=== PATIENT | female | born 1970 | race Caucasian/White ===

== ENCOUNTER → 2018-04-04 | Outpatient (CLI) | payer OTHER | LOC: M RAD 17:50 | DX: D25.9 Leiomyoma of uterus, unspecified (principal); N85.4 Malposition of uterus | CPT/HCPCS: 76856 ==

== ENCOUNTER → 2018-06-30 | Outpatient (REF) | payer OTHER ==
[2018-07-02 14:10] LABS: HPV HYBRID CAPTURE II Positive (Negative)
== END ==
LOC: M LAB REF 18:31
DX: Z12.4 Encounter for screening for malignant neoplasm of cervix (principal)

== ENCOUNTER 2018-08-29 06:00 | Day surgery (SDC) | payer OTHER ==
[~2018-08-29 06:00] MED LIST: LR 1,000 ML IV
[2018-08-29 06:37] LABS: HEMATOCRIT 37.2 % (36.0-47.0); HEMOGLOBIN 12.1 g/dl (12.0-15.5); MEAN CORPUSCULAR HEMOGLOBIN 25.3 pg (27.0-33.0); MEAN CORPUSCULAR HGB CONC 32.5 g/dl (32.0-36.5); MEAN CORPUSCULAR VOLUME 77.8 fl (80.0-96.0); PLATELET COUNT, AUTOMATED 371 10^3/uL (150-450); RED BLOOD COUNT 4.78 10^6/uL (4.00-5.40); RED CELL DISTRIBUTION WIDTH 17.7 % (11.5-14.5); WHITE BLOOD COUNT 10.7 10^3/uL (4.0-10.0)
[2018-08-29 06:46] LABS: CONTROL LINE UCG INT CTR LINE PRESENT; URINE PREG TEST NEGATIVE (NEGATIVE)
[2018-08-29 06:50] LABS: BEDSIDE GLUCOSE 137 MG/DL (70-105)
[2018-08-29] MEDS ORDERED: ONDANSETRON 4MG/2ML VIAL (J2405) As Ordered ×2 (07:15→09:07)
[2018-08-29] MEDS ORDERED: dexameTHASONE 4 MG/ML 1ML VIAL (J1100) As Ordered (07:15)
[2018-08-29] MEDS ORDERED: LIDOCAINE 2% INJ 100 MG/5 ML SDV (FOR ANES.) As Ordered (07:15)
[2018-08-29] MEDS ORDERED: ROCURONIUM BROMIDE 50 MG/5 ML VIAL As Ordered ×2 (07:15→08:34)
[2018-08-29] MEDS ORDERED: PROPOFOL 200 MG/20 ML VIAL As Ordered ×2 (07:15→08:36)
[2018-08-29] MEDS ORDERED: fentaNYL 250 MCG/5 ML INJECTION (J3010) As Ordered (07:16)
[2018-08-29] MEDS ORDERED: MIDAZOLAM INJ 5 MG/ML VIAL (J2250) As Ordered (07:17)
[2018-08-29] MEDS ORDERED: LABETALOL HCL 100 MG/20 ML VIAL As Ordered (08:24)
[2018-08-29] MEDS ORDERED: HYDROmorphone HCL 2 MG/ML 1ML VIAL (J1170) As Ordered (08:54)
[2018-08-29] MEDS ORDERED: NEOSTIGMINE 10 MG/10 ML VIAL (J2710) As Ordered (08:54)
[2018-08-29] MEDS ORDERED: KETOROLAC 60 MG/2 ML VIAL (J1885) As Ordered (08:54)
[2018-08-29] MEDS ORDERED: GLYCOPYRROLATE INJ 0.2 MG/ML 2 ML VIAL As Ordered (08:54)
[2018-08-29] MEDS: METHYLENE BLUE 0.5% (5MG/ML) 10 ML AMP (PROVAYBLUE)(Q9968 PER 1MG) As Ordered (08:57)
[2018-08-29] MEDS: BUPIVACAINE HCL 0.25% 10 ML VIAL As Ordered (09:13)
[2018-08-29] MEDS ORDERED: SUGAMMADEX SODIUM 500 MG/5 ML VIAL (BRIDION) As Ordered (09:14)
[2018-08-29] MEDS ORDERED: MIDAZOLAM INJ 2 MG/2 ML VIAL (J2250) As Ordered (09:48)
[2018-08-29 10:26] LABS: BEDSIDE GLUCOSE 190 MG/DL (70-105)
[2018-08-29] MEDS ORDERED: ONDANSETRON 4MG/2ML VIAL (J2405) IV ×2 (10:30→10:45)
[2018-08-29] MEDS ORDERED: fentaNYL 100 MCG/2 ML INJECTION (J3010) IV (10:30)
[2018-08-29] MEDS ORDERED: HYDROMORPHONE HCL 0.5 MG/ 0.5 ML SYRINGE (J1170 PER 1) IV (10:30)
[2018-08-29] MEDS: PERCOCET 5MG/325MG TAB PO ×2 (10:37→14:34)
[2018-08-29] MEDS ORDERED: KETOROLAC 30 MG/ML VIAL (J1885) IV (10:45)
[2018-08-29] MEDS ORDERED: MEPERIDINE INJ 25 MG/ML VIAL (J2175) IV (10:45)
[2018-08-29] MEDS ORDERED: PERCOCET 5MG/325MG TAB PO (10:45)
[2018-08-29] MEDS: LR 1,000 ML IV ×2 (11:42)
[2018-08-29] MEDS ORDERED: DOCUSATE SODIUM 100 MG CAP PO (21:00)
== END 2018-08-29 17:05 | disposition home or self-care (01) ==
LOC: M SDC 06:00 → M MSPAV 11:03 → M SDC 17:05
DX: N92.0 Excessive and frequent menstruation with regular cycle (principal); N85.01 Benign endometrial hyperplasia; D25.0 Submucous leiomyoma of uterus; D25.2 Subserosal leiomyoma of uterus; E11.9 Type 2 diabetes mellitus without complications; G47.30 Sleep apnea, unspecified; F32.9 Major depressive disorder, single episode, unspecified; F41.9 Anxiety disorder, unspecified; E78.5 Hyperlipidemia, unspecified; M79.7 Fibromyalgia; K21.9 Gastro-esophageal reflux disease without esophagitis; Z79.82 Long term (current) use of aspirin; Z79.84 Long term (current) use of oral hypoglycemic drugs; Z79.899 Other long term (current) drug therapy
CPT/HCPCS: 58572

== ENCOUNTER → 2020-02-06 | Outpatient (REF) | payer OTHER ==
[~2020-02-06] MED LIST changes: +AMBI10TA PO; +ASPI81TA26 PO; +Atarax PO; +BIOT50004 PO; +BRIN10TA PO; +BUPR15TA PO; +CEPA0.05 MT; +CEPALOZ PO; +CHLO1.4S2 PO; +CYCL10TA PO; +DHEA50CA4 PO; +DIVA500T94 PO; +DIVA50TAEC PO; +DOCU100C16 PO; +FISH7.5C PO; +GABA600T4 PO; +GINK60TA4 PO; +IBUP-1022 PO; +KEPP10002 PO; +LAMO100T80 PO; +LEXA1TAB PO; +LIPI80TA PO; +LOPI600T PO; -LR 1,000 ML IV; +MAGN1TAB26 PO; +METF10004 PO; +MOBI15TA PO; +MULT1TAB10 PO; +NORT75CA2 PO; +OMEP1CAP73 PO; +OMEP40CA97 PO; +OXYC1TAB23 PO; +PRAV20TA2 PO; +PRAV40TA2 PO; +PREG50CA PO; +SAVE50TA PO; +TIZA1TAB19 PO; +TRAZ-257 PO; +TURM500T PO; +VALI5TAB PO; +VITA100067 PO; +VITA100T77 PO; +VITA500T17 PO; +XANA1TAB2 PO; +[UNRECOGNIZED DRUG - CODE] MT
[2020-02-06 13:25] LABS: C REACTIVE PROTEIN QUANTITATIV 0.82 MG/DL (0.00-0.30); RHEUMATOID FACTOR QUANT < 10.0 IU/ML (<15.0)
== END ==
LOC: M SFHCRHEU 09:39
PROVIDERS: ATTEND Internal Medicine
DX: M25.561 Pain in right knee (principal)